=== PATIENT | male | born 1945 | race Two or more races ===

== ENCOUNTER 2022-03-20 15:30 | Inpatient (IN) | payer MEDICARE, OTHER ==
[~2022-03-20] VITALS: Ht 177.8 cm; Wt 77.7 kg
[2022-03-20] MEDS ORDERED: VANCOMYCIN PER PHARMACY 0 MG IV ONE (19:15)
[2022-03-20] MEDS ORDERED: PIPERACILLIN-TAZOB 3.375GM 100 ML IV ONE (19:15)
[2022-03-20 20:06] LABS: Basophils # (auto) 0.1 10 ^3/uL (0-0.2); Basophils % (auto) 0.8 % (0.0-2.0); Eosinophils # (auto) 0.1 10 ^3/uL (0-0.8); Eosinophils % (auto) 0.4 % (0.0-7.0); Hematocrit 43.8 % (41.0-53.0); Lymphocytes # (auto) 1.5 10 ^3/uL (0.4-5.4); Lymphocytes % (auto) 9.2 % (10.0-50.0); Mean Corpuscular Hemoglobin 29.5 pg (28.0-32.0); Mean Corpuscular Hgb Conc. 34.2 g/dL (32.0-36.0); Mean Corpuscular Volume 86.4 fL (80.0-100.0); Monocytes # (auto) 1.4 10 ^3/uL (0-1.3); Monocytes % (auto) 8.6 % (0.0-12.0); Neutrophils # (auto) 13.1 10 ^3/uL (1.6-8.6); Red Blood Cells 5.06 10^6/uL (4.5-5.90); Red Cell Distribution Width 13.4 % (11.8-14.3); White Blood Cell 16.2 10^3/uL (4.4-10.8)
[2022-03-20] MEDS ORDERED: VANCOMYCIN 1GM/250ML 250 ML IV ONE (20:15)
[2022-03-20] MEDS ORDERED: VANCOMYCIN PER PHARMACY 0 MG IV SCH (20:15)
[2022-03-20 20:21] LABS: Albumin 2.9 g/dL (3.4-5.0); Calcium 9.2 mg/dL (8.5-10.1); Potassium 4.1 mmol/L (3.5-5.1)
[2022-03-20 20:29] LABS: BUN/Creatinine Ratio 17.9; Bilirubin, Total 0.6 mg/dL (0.2-1.0); CRP High Sensitivity 18.2 mg/dL (< 0.3); Total Protein 8.8 g/dL (6.4-8.2)
[2022-03-21] VITALS (7 sets, daily range): BP systolic 123–169; BP diastolic 74–99
[2022-03-21] MEDS ORDERED: DOCUSATE SOD 100 MG CAP PO PRN (00:15)
[2022-03-21] MEDS ORDERED: VANCOMYCIN PER PHARMACY 0 MG IV SCH (00:15)
[2022-03-21] MEDS ORDERED: HYDROcodone-ACET 5/325MG TAB PO PRN (00:15)
[2022-03-21] MEDS ORDERED: DEXTROSE (50%) 50ML SYRG IV PRN (00:15)
[2022-03-21] MEDS ORDERED: ACETAMINOPHEN 325 MG TAB PO PRN (00:15)
[2022-03-21] MEDS ORDERED: ONDANSETRON HCL 4 MG/2 ML VIAL IV PRN (00:15)
[2022-03-21] MEDS: PIPERACILLIN-TAZOB 3.375GM 100 ML IV SCH ×4 (00:30→20:47)
[2022-03-21] MEDS ORDERED: NITROGLYCERIN 0.4 MG SL TAB SL PRN (01:15)
[2022-03-21] MEDS ORDERED: MORPHINE SULFATE INJECTION 2 MG/ML SYRG IV PRN (01:15)
[2022-03-21 05:41] LABS: Basophils # (auto) 0 10 ^3/uL (0-0.2); Basophils % (auto) 0.2 % (0.0-2.0); Eosinophils # (auto) 0 10 ^3/uL (0-0.8); Eosinophils % (auto) 0.1 % (0.0-7.0); Hematocrit 43.1 % (41.0-53.0); Hemoglobin 14.5 g/dL (13.5-17.5); Lymphocytes % (auto) 6.7 % (10.0-50.0); Mean Corpuscular Hemoglobin 29.2 pg (28.0-32.0); Mean Corpuscular Hgb Conc. 33.5 g/dL (32.0-36.0); Mean Corpuscular Volume 87.1 fL (80.0-100.0); Monocytes # (auto) 1.4 10 ^3/uL (0-1.3); Monocytes % (auto) 9.3 % (0.0-12.0); Neutrophils # (auto) 12.5 10 ^3/uL (1.6-8.6); Neutrophils % (auto) 83.7 % (37.0-80.0); Nucleated Red Blood Cells % 0.9 %; Red Blood Cells 4.95 10^6/uL (4.5-5.90); Red Cell Distribution Width 13.3 % (11.8-14.3)
[2022-03-21 06:05] LABS: Potassium 3.8 mmol/L (3.5-5.1)
[2022-03-21 06:17] LABS: Albumin 2.7 g/dL (3.4-5.0); BUN/Creatinine Ratio 14.7; Calcium 8.8 mg/dL (8.5-10.1); Total Protein 7.5 g/dL (6.4-8.2)
[2022-03-21] MEDS: SODIUM CHLOR 0.9% PF (SALINE LOCK) 10ML VIAL/SYR IV SCH ×3 (06:25→21:40)
[2022-03-21] MEDS: ACCU-CHEK COMFORT CURVE STRIP VI SCH ×4 (06:26→21:39)
[2022-03-21] MEDS: InsuLIN REG 1unit/0.01ml Soln (100units/ml) SC SCH ×4 (06:34→21:43)
[2022-03-21] MEDS ORDERED: VANCOMYCIN 1GM/250ML 250 ML IV SCH (10:00)
[2022-03-21] MEDS: ZINC SULFATE 220mg CAP or TAB PO SCH (10:00)
[2022-03-21] MEDS: ENOXAPARIN SOD 40 MG/0.4 ML SYRINGE SC SCH (11:05)
[2022-03-21] MEDS: FAMOTIDINE (10MG/ML) 2ML VL IV SCH ×2 (11:05→21:40)
[2022-03-21] MEDS: ASCORBIC ACID 500 MG TAB PO SCH ×2 (11:05→21:40)
[2022-03-21] MEDS: MULTIPLE VITAMIN TAB PO SCH (11:06)
[2022-03-21] MEDS: INSULIN LANTUS (GLARGINE) 1 /0.01ml (100units/ml) SC SCH ×3 (11:56→21:52)
[2022-03-21] MEDS ORDERED: LORazepam 2MG/ML-1ML VIAL IV ONE (13:15)
[2022-03-21] MEDS ORDERED: hydrALAZINE HCL 20 MG/ML VL IV PRN (14:00)
[2022-03-22] VITALS (7 sets, daily range): BP systolic 122–150; BP diastolic 75–88
[2022-03-22] MEDS: PIPERACILLIN-TAZOB 3.375GM 100 ML IV SCH ×4 (02:44→21:10)
[2022-03-22] MEDS: VANCOMYCIN 1GM/250ML 250 ML IV SCH ×2 (05:44→17:00)
[2022-03-22] MEDS: SODIUM CHLOR 0.9% PF (SALINE LOCK) 10ML VIAL/SYR IV SCH ×3 (05:45→22:39)
[2022-03-22] MEDS: INSULIN LANTUS (GLARGINE) 1 /0.01ml (100units/ml) SC SCH ×4 (06:09→22:00)
[2022-03-22] MEDS: InsuLIN REG 1unit/0.01ml Soln (100units/ml) SC SCH ×4 (06:09→22:40)
[2022-03-22] MEDS: ACCU-CHEK COMFORT CURVE STRIP VI SCH ×3 (06:46→18:30)
[2022-03-22 08:08] LABS: Basophils # (auto) 0.1 10 ^3/uL (0-0.2); Basophils % (auto) 0.8 % (0.0-2.0); Eosinophils # (auto) 0.1 10 ^3/uL (0-0.8); Eosinophils % (auto) 0.4 % (0.0-7.0); Hemoglobin 14.3 g/dL (13.5-17.5); Lymphocytes # (auto) 1.7 10 ^3/uL (0.4-5.4); Lymphocytes % (auto) 10.7 % (10.0-50.0); Mean Corpuscular Hemoglobin 29.5 pg (28.0-32.0); Mean Corpuscular Hgb Conc. 34.1 g/dL (32.0-36.0); Mean Corpuscular Volume 86.5 fL (80.0-100.0); Monocytes # (auto) 1.5 10 ^3/uL (0-1.3); Monocytes % (auto) 9.1 % (0.0-12.0); Neutrophils # (auto) 12.7 10 ^3/uL (1.6-8.6); Red Blood Cells 4.86 10^6/uL (4.5-5.90); Red Cell Distribution Width 13.2 % (11.8-14.3)
[2022-03-22 08:25] LABS: Albumin 2.6 g/dL (3.4-5.0); Calcium 9.1 mg/dL (8.5-10.1); Potassium 3.6 mmol/L (3.5-5.1)
[2022-03-22 08:28] LABS: BUN/Creatinine Ratio 18.5; Bilirubin, Total 0.8 mg/dL (0.2-1.0); Total Protein 7.5 g/dL (6.4-8.2)
[2022-03-22] MEDS: ZINC SULFATE 220mg CAP or TAB PO SCH (08:57)
[2022-03-22] MEDS: FAMOTIDINE (10MG/ML) 2ML VL IV SCH ×2 (08:57→22:39)
[2022-03-22] MEDS: ENOXAPARIN SOD 40 MG/0.4 ML SYRINGE SC SCH (08:57)
[2022-03-22] MEDS: MULTIPLE VITAMIN TAB PO SCH (08:57)
[2022-03-22] MEDS: ASCORBIC ACID 500 MG TAB PO SCH ×2 (08:57→22:39)
[2022-03-23] VITALS (7 sets, daily range): BP systolic 128–155; BP diastolic 69–83
[2022-03-23] MEDS: PIPERACILLIN-TAZOB 3.375GM 100 ML IV SCH (03:25)
[2022-03-23] MEDS: ACCU-CHEK COMFORT CURVE STRIP VI SCH ×2 (03:28→22:00)
[2022-03-23 06:22] LABS: Basophils # (auto) 0.1 10 ^3/uL (0-0.2); Eosinophils # (auto) 0.2 10 ^3/uL (0-0.8); Eosinophils % (auto) 1.1 % (0.0-7.0); Hematocrit 40.5 % (41.0-53.0); Lymphocytes # (auto) 1.7 10 ^3/uL (0.4-5.4); Lymphocytes % (auto) 11.6 % (10.0-50.0); Mean Corpuscular Hemoglobin 29.7 pg (28.0-32.0); Mean Corpuscular Hgb Conc. 34.6 g/dL (32.0-36.0); Mean Corpuscular Volume 85.8 fL (80.0-100.0); Monocytes # (auto) 1.5 10 ^3/uL (0-1.3); Monocytes % (auto) 10.4 % (0.0-12.0); Neutrophils # (auto) 10.9 10 ^3/uL (1.6-8.6); Neutrophils % (auto) 75.9 % (37.0-80.0); Red Blood Cells 4.72 10^6/uL (4.5-5.90); Red Cell Distribution Width 13.2 % (11.8-14.3); White Blood Cell 14.3 10^3/uL (4.4-10.8)
[2022-03-23 06:29] LABS: Calcium 8.9 mg/dL (8.5-10.1); Potassium 3.6 mmol/L (3.5-5.1)
[2022-03-23 06:32] LABS: BUN/Creatinine Ratio 20.8
[2022-03-23] MEDS: ZINC SULFATE 220mg CAP or TAB PO SCH (09:58)
[2022-03-23] MEDS: FAMOTIDINE (10MG/ML) 2ML VL IV SCH ×2 (09:58→22:00)
[2022-03-23] MEDS: ASCORBIC ACID 500 MG TAB PO SCH ×2 (09:59→22:00)
[2022-03-23] MEDS: MULTIPLE VITAMIN TAB PO SCH (10:00)
[2022-03-23] MEDS: ENOXAPARIN SOD 40 MG/0.4 ML SYRINGE SC SCH (10:00)
[2022-03-23] MEDS ORDERED: levoFLOXacin 500MG 100 ML IV ONE (14:00)
[2022-03-23] MEDS: VANCOMYCIN 1GM/250ML 250 ML IV SCH ×2 (16:02→20:00)
[2022-03-23] MEDS: InsuLIN REG 1unit/0.01ml Soln (100units/ml) SC SCH (22:00)
[2022-03-23] MEDS: SODIUM CHLOR 0.9% PF (SALINE LOCK) 10ML VIAL/SYR IV SCH (22:00)
[2022-03-23] MEDS: INSULIN LANTUS (GLARGINE) 1 /0.01ml (100units/ml) SC SCH (22:00)
[2022-03-24] VITALS (7 sets, daily range): BP systolic 128–172; BP diastolic 62–86
[2022-03-24 06:25] LABS: Basophils # (auto) 0.2 10 ^3/uL (0-0.2); Basophils % (auto) 1.3 % (0.0-2.0); Eosinophils # (auto) 0.1 10 ^3/uL (0-0.8); Eosinophils % (auto) 0.6 % (0.0-7.0); Hematocrit 38.8 % (41.0-53.0); Hemoglobin 13.4 g/dL (13.5-17.5); Lymphocytes # (auto) 1.5 10 ^3/uL (0.4-5.4); Lymphocytes % (auto) 10.1 % (10.0-50.0); Mean Corpuscular Hemoglobin 29.8 pg (28.0-32.0); Mean Corpuscular Hgb Conc. 34.5 g/dL (32.0-36.0); Mean Corpuscular Volume 86.5 fL (80.0-100.0); Monocytes # (auto) 1.3 10 ^3/uL (0-1.3); Monocytes % (auto) 8.8 % (0.0-12.0); Neutrophils # (auto) 11.9 10 ^3/uL (1.6-8.6); Neutrophils % (auto) 79.2 % (37.0-80.0); Red Blood Cells 4.49 10^6/uL (4.5-5.90); Red Cell Distribution Width 13.3 % (11.8-14.3)
[2022-03-24 06:32] LABS: Potassium 3.9 mmol/L (3.5-5.1)
[2022-03-24] MEDS: InsuLIN REG 1unit/0.01ml Soln (100units/ml) SC SCH ×4 (06:47→22:02)
[2022-03-24] MEDS: VANCOMYCIN 1GM/250ML 250 ML IV SCH ×2 (06:52→12:04)
[2022-03-24] MEDS: SODIUM CHLOR 0.9% PF (SALINE LOCK) 10ML VIAL/SYR IV SCH ×3 (06:53→21:53)
[2022-03-24 06:58] LABS: Albumin 2.3 g/dL (3.4-5.0); BUN/Creatinine Ratio 17.5; Bilirubin, Total 0.6 mg/dL (0.2-1.0); Calcium 8.9 mg/dL (8.5-10.1); Total Protein 7.2 g/dL (6.4-8.2)
[2022-03-24] MEDS: INSULIN LANTUS (GLARGINE) 1 /0.01ml (100units/ml) SC SCH ×3 (07:00→22:10)
[2022-03-24] MEDS ORDERED: IOHEXOL 300 MG/ML 100ML BOTTLE IJ ONE (08:21)
[2022-03-24] MEDS: levoFLOXacin 500MG 100 ML IV SCH (09:11)
[2022-03-24] MEDS: ASCORBIC ACID 500 MG TAB PO SCH ×2 (09:11→21:53)
[2022-03-24] MEDS: ZINC SULFATE 220mg CAP or TAB PO SCH (09:12)
[2022-03-24] MEDS: MULTIPLE VITAMIN TAB PO SCH (09:12)
[2022-03-24] MEDS: ENOXAPARIN SOD 40 MG/0.4 ML SYRINGE SC SCH (09:12)
[2022-03-24] MEDS: ACCU-CHEK COMFORT CURVE STRIP VI SCH ×3 (11:57→21:56)
[2022-03-24 22:39] LABS: Amphetamine Screen, Urine NEGATIVE (NEGATIVE); Barbiturate Scree,Urine NEGATIVE (NEGATIVE); Benzodiazephine Screen, Urine NEGATIVE (NEGATIVE); Cannabinoid Screen, Urine NEGATIVE (NEGATIVE); Cocaine Screen, Urine NEGATIVE (NEGATIVE); Opiate Scree,Urine NEGATIVE (NEGATIVE); Phencyclidine Screen, Urine NEGATIVE (NEGATIVE)
[2022-03-24 23:05] LABS: Urine Blood Negative /uL (Negative); Urine Specific Gravity 1.026 (1.001-1.035)
[2022-03-24 23:13] LABS: Urine WBC 0-2 /hpf (0 - 3)
[2022-03-25] VITALS (7 sets, daily range): BP systolic 123–142; BP diastolic 63–92
[2022-03-25 00:42] LABS: Urine Bacteria NONE SEEN /hpf (None Seen)
[2022-03-25] MEDS: SODIUM CHLOR 0.9% PF (SALINE LOCK) 10ML VIAL/SYR IV SCH ×3 (06:07→21:54)
[2022-03-25 06:15] LABS: Basophils # (auto) 0.1 10 ^3/uL (0-0.2); Basophils % (auto) 0.8 % (0.0-2.0); Eosinophils # (auto) 0.2 10 ^3/uL (0-0.8); Eosinophils % (auto) 1.2 % (0.0-7.0); Hematocrit 38.7 % (41.0-53.0); Hemoglobin 13.3 g/dL (13.5-17.5); Lymphocytes # (auto) 1.7 10 ^3/uL (0.4-5.4); Lymphocytes % (auto) 11.8 % (10.0-50.0); Mean Corpuscular Hemoglobin 29.7 pg (28.0-32.0); Mean Corpuscular Hgb Conc. 34.3 g/dL (32.0-36.0); Mean Corpuscular Volume 86.6 fL (80.0-100.0); Monocytes # (auto) 1.2 10 ^3/uL (0-1.3); Monocytes % (auto) 8.3 % (0.0-12.0); Neutrophils # (auto) 11.5 10 ^3/uL (1.6-8.6); Neutrophils % (auto) 77.9 % (37.0-80.0); Nucleated Red Blood Cells % 0.1 %; Red Blood Cells 4.48 10^6/uL (4.5-5.90); Red Cell Distribution Width 13.2 % (11.8-14.3); White Blood Cell 14.7 10^3/uL (4.4-10.8)
[2022-03-25] MEDS: INSULIN LANTUS (GLARGINE) 1 /0.01ml (100units/ml) SC SCH ×2 (06:25→22:07)
[2022-03-25 06:26] LABS: Albumin 2.2 g/dL (3.4-5.0); Calcium 8.8 mg/dL (8.5-10.1); Magnesium 2.1 mg/dL (1.6-2.6); Potassium 3.8 mmol/L (3.5-5.1)
[2022-03-25] MEDS: InsuLIN REG 1unit/0.01ml Soln (100units/ml) SC SCH ×4 (06:26→22:06)
[2022-03-25] MEDS: ACCU-CHEK COMFORT CURVE STRIP VI SCH ×4 (06:27→21:54)
[2022-03-25 06:32] LABS: BUN/Creatinine Ratio 16.4; Bilirubin, Total 0.5 mg/dL (0.2-1.0); Total Protein 7.2 g/dL (6.4-8.2)
[2022-03-25] MEDS: VANCOMYCIN 1GM/250ML 250 ML IV SCH ×2 (08:58→19:55)
[2022-03-25] MEDS: ASCORBIC ACID 500 MG TAB PO SCH ×2 (08:59→21:54)
[2022-03-25] MEDS: ENOXAPARIN SOD 40 MG/0.4 ML SYRINGE SC SCH (08:59)
[2022-03-25] MEDS: ZINC SULFATE 220mg CAP or TAB PO SCH (08:59)
[2022-03-25] MEDS: MULTIPLE VITAMIN TAB PO SCH (08:59)
[2022-03-25] MEDS: levoFLOXacin 500MG 100 ML IV SCH (10:16)
[2022-03-25] MEDS: CHOLECALCIFEROL (VITD3) 2,000 UNIT CAP/TAB PO ONE ×2 (15:38→17:00)
[2022-03-26 05:00] VITALS: BP 114/60
[2022-03-26] MEDS: SODIUM CHLOR 0.9% PF (SALINE LOCK) 10ML VIAL/SYR IV SCH ×3 (06:02→21:49)
[2022-03-26 06:17] LABS: Basophils # (auto) 0.2 10 ^3/uL (0-0.2); Basophils % (auto) 1.3 % (0.0-2.0); Eosinophils # (auto) 0.2 10 ^3/uL (0-0.8); Eosinophils % (auto) 1.5 % (0.0-7.0); Hematocrit 40.9 % (41.0-53.0); Hemoglobin 13.9 g/dL (13.5-17.5); Lymphocytes # (auto) 1.4 10 ^3/uL (0.4-5.4); Lymphocytes % (auto) 11.8 % (10.0-50.0); Mean Corpuscular Hemoglobin 29.5 pg (28.0-32.0); Mean Corpuscular Volume 86.6 fL (80.0-100.0); Monocytes # (auto) 1.1 10 ^3/uL (0-1.3); Monocytes % (auto) 9.6 % (0.0-12.0); Neutrophils # (auto) 8.8 10 ^3/uL (1.6-8.6); Neutrophils % (auto) 75.8 % (37.0-80.0); Red Blood Cells 4.72 10^6/uL (4.5-5.90); Red Cell Distribution Width 13.3 % (11.8-14.3); White Blood Cell 11.6 10^3/uL (4.4-10.8)
[2022-03-26] MEDS: ACCU-CHEK COMFORT CURVE STRIP VI SCH ×4 (06:25→21:49)
[2022-03-26] MEDS: InsuLIN REG 1unit/0.01ml Soln (100units/ml) SC SCH ×4 (06:28→21:47)
[2022-03-26] MEDS: INSULIN LANTUS (GLARGINE) 1 /0.01ml (100units/ml) SC SCH ×2 (06:30→21:47)
[2022-03-26 07:49] VITALS: BP 128/86
[2022-03-26 09:00] VITALS: BP 147/96
[2022-03-26] MEDS: VANCOMYCIN 1GM/250ML 250 ML IV SCH ×2 (09:36→20:26)
[2022-03-26] MEDS: ENOXAPARIN SOD 40 MG/0.4 ML SYRINGE SC SCH (09:36)
[2022-03-26] MEDS: CHOLECALCIFEROL (VITD3) 2,000 UNIT CAP/TAB PO SCH (09:37)
[2022-03-26] MEDS: ZINC SULFATE 220mg CAP or TAB PO SCH (09:37)
[2022-03-26] MEDS: levoFLOXacin 500MG 100 ML IV SCH (09:37)
[2022-03-26] MEDS: ASCORBIC ACID 500 MG TAB PO SCH ×2 (09:37→21:46)
[2022-03-26] MEDS: MULTIPLE VITAMIN TAB PO SCH (09:37)
[2022-03-26] MEDS ORDERED: CEFTRIAXONE SODIUM 2 GM in D5W 5% 50 ML IV ONE (13:30)
[2022-03-26 17:15] VITALS: BP 152/90
[2022-03-26 20:00] VITALS: BP 128/86
[2022-03-26 22:00] VITALS: BP 137/73
[2022-03-27] VITALS (7 sets, daily range): BP systolic 111–129; BP diastolic 63–89
[2022-03-27] MEDS: SODIUM CHLOR 0.9% PF (SALINE LOCK) 10ML VIAL/SYR IV SCH ×3 (06:38→22:47)
[2022-03-27] MEDS: InsuLIN REG 1unit/0.01ml Soln (100units/ml) SC SCH ×4 (06:38→22:39)
[2022-03-27] MEDS: ACCU-CHEK COMFORT CURVE STRIP VI SCH ×4 (06:39→22:45)
[2022-03-27] MEDS: INSULIN LANTUS (GLARGINE) 1 /0.01ml (100units/ml) SC SCH ×2 (06:59→22:00)
[2022-03-27] MEDS: ENOXAPARIN SOD 40 MG/0.4 ML SYRINGE SC SCH (08:31)
[2022-03-27] MEDS: COLCHICINE 0.6 MG CAP PO SCH ×2 (08:32→22:37)
[2022-03-27] MEDS: CHOLECALCIFEROL (VITD3) 2,000 UNIT CAP/TAB PO SCH (08:32)
[2022-03-27] MEDS: ASCORBIC ACID 500 MG TAB PO SCH ×2 (08:32→22:37)
[2022-03-27] MEDS: ZINC SULFATE 220mg CAP or TAB PO SCH (08:32)
[2022-03-27] MEDS: MULTIPLE VITAMIN TAB PO SCH (08:33)
[2022-03-27] MEDS: VANCOMYCIN 1GM/250ML 250 ML IV SCH ×2 (08:35→20:30)
[2022-03-27] MEDS: CEFTRIAXONE SODIUM 2 GM in D5W 5% 50 ML IV SCH (10:40)
[2022-03-27] MEDS ORDERED: methylPREDNISolone SOD SUCC 40 MG/ML VL IV ONE (15:15)
[2022-03-28 05:00] VITALS: BP 168/99
[2022-03-28] MEDS: SODIUM CHLOR 0.9% PF (SALINE LOCK) 10ML VIAL/SYR IV SCH ×2 (06:04→13:47)
[2022-03-28] MEDS: InsuLIN REG 1unit/0.01ml Soln (100units/ml) SC SCH ×3 (06:42→17:00)
[2022-03-28] MEDS: INSULIN LANTUS (GLARGINE) 1 /0.01ml (100units/ml) SC SCH (06:43)
[2022-03-28] MEDS: ACCU-CHEK COMFORT CURVE STRIP VI SCH ×3 (06:45→17:37)
[2022-03-28] MEDS ORDERED: hydrALAZINE HCL 10 MG TAB PO PRN (08:00)
[2022-03-28] MEDS: VANCOMYCIN 1GM/250ML 250 ML IV SCH (08:10)
[2022-03-28 09:00] VITALS: BP 126/84
[2022-03-28 09:37] LABS: Basophils # (auto) 0.2 10 ^3/uL (0-0.2); Basophils % (auto) 1.5 % (0.0-2.0); Eosinophils # (auto) 0 10 ^3/uL (0-0.8); Eosinophils % (auto) 0.3 % (0.0-7.0); Hematocrit 40.4 % (41.0-53.0); Hemoglobin 13.8 g/dL (13.5-17.5); Lymphocytes # (auto) 1.5 10 ^3/uL (0.4-5.4); Lymphocytes % (auto) 14.1 % (10.0-50.0); Mean Corpuscular Hemoglobin 29.4 pg (28.0-32.0); Mean Corpuscular Volume 86.5 fL (80.0-100.0); Monocytes # (auto) 0.9 10 ^3/uL (0-1.3); Monocytes % (auto) 8.5 % (0.0-12.0); Neutrophils # (auto) 8.2 10 ^3/uL (1.6-8.6); Neutrophils % (auto) 75.6 % (37.0-80.0); Red Blood Cells 4.67 10^6/uL (4.5-5.90); Red Cell Distribution Width 13.4 % (11.8-14.3); White Blood Cell 10.9 10^3/uL (4.4-10.8)
[2022-03-28] MEDS: CHOLECALCIFEROL (VITD3) 2,000 UNIT CAP/TAB PO SCH (09:44)
[2022-03-28] MEDS: ENOXAPARIN SOD 40 MG/0.4 ML SYRINGE SC SCH (09:44)
[2022-03-28] MEDS: COLCHICINE 0.6 MG CAP PO SCH (09:44)
[2022-03-28] MEDS: MULTIPLE VITAMIN TAB PO SCH (09:44)
[2022-03-28] MEDS: ZINC SULFATE 220mg CAP or TAB PO SCH (09:44)
[2022-03-28] MEDS: ASCORBIC ACID 500 MG TAB PO SCH (09:44)
[2022-03-28] MEDS: CEFTRIAXONE SODIUM 2 GM in D5W 5% 50 ML IV SCH (09:44)
[2022-03-28] MEDS ORDERED: PENICILLIN G POTASSIUM 3,000,000 UNITS in D5W 5% 50 ML IV SCH (10:00)
[2022-03-28] MEDS: PENICILLIN G POTASSIUM 3,000,000 UNITS in D5W 5% 50 ML IV SCH ×2 (12:19→16:49)
[2022-03-28 13:00] VITALS: BP 133/84
[2022-03-28] MEDS ORDERED: INSLANTI SC (14:12)
[2022-03-28] MEDS ORDERED: PENI500T2 PO (14:12)
[2022-03-28] MEDS ORDERED: CHOL20007 PO (14:12)
[2022-03-28] MEDS ORDERED: COLC1TAB3 PO (14:12)
[2022-03-28] MEDS ORDERED: LISI20TA28 PO (14:12)
[2022-03-28] MEDS ORDERED: methylPREDNISolone SOD SUCC 40 MG/ML VL IV ONE (14:15)
[2022-03-28 17:00] VITALS: BP 126/82
== END 2022-03-28 20:54 | disposition home or self-care (01) | DRG 872 ==
LOC: ER 15:47 → OVERFLOW 03-21 01:04 → WEST WING 03-21 02:15
PROVIDERS: ADMIT Nurse Practitioner Family; ATTEND Internal Medicine
DX: A41.9 Sepsis, unspecified organism (principal); L03.114 Cellulitis of left upper limb; E87.1 Hypo-osmolality and hyponatremia; E11.65 Type 2 diabetes mellitus with hyperglycemia; E55.9 Vitamin D deficiency, unspecified; E66.9 Obesity, unspecified; E88.09 Other disorders of plasma-protein metabolism, not elsewhere classified; I10 Essential (primary) hypertension; I87.2 Venous insufficiency (chronic) (peripheral); Z20.822 Contact with and (suspected) exposure to COVID-19; M19.042 Primary osteoarthritis, left hand; Z82.61 Family history of arthritis; Z68.28 Body mass index [BMI] 28.0-28.9, adult; Z79.84 Long term (current) use of oral hypoglycemic drugs
CPT/HCPCS: 36415; 71045; 73120; 73200; 73201; 78315; 80048; 80053; 80061; 80202; 80307; 81001; 82306; 82962; 83036; 83605; 83735; 83880; 84443; 85025; 85652; 86141; 87040; 93306; 93971; 96365; 96366; 96368; 99291; G0378; J0696; J1815; J1956; J2543; J3490; J7060

== ENCOUNTER 2024-08-17 17:35 | Emergency (ER) | payer MEDICARE, MEDICAID ==
[~2024-08-17] VITALS: Ht 182.9 cm; Wt 91.0 kg
[~2024-08-17 17:35] MED LIST: INSLANTI SC; PENI500T2 PO
[2024-08-17 18:22] VITALS: BP 149/83; PULSE 88; RESP 18; O2SAT 97
[2024-08-17 19:53] LABS: Basophils # (auto) 0 10 ^3/uL (0-0.2); Basophils % (auto) 0.4 % (0.0-2.0); Eosinophils # (auto) 0.1 10 ^3/uL (0-0.8); Eosinophils % (auto) 0.7 % (0.0-7.0); Hematocrit 39.9 % (41.0-53.0); Hemoglobin 13.9 g/dL (13.5-17.5); Lymphocytes % (auto) 10.2 % (10.0-50.0); Mean Corpuscular Hemoglobin 30.9 pg (28.0-32.0); Mean Corpuscular Hgb Conc. 34.8 g/dL (32.0-36.0); Mean Corpuscular Volume 88.8 fL (80.0-100.0); Monocytes # (auto) 0.8 10 ^3/uL (0-1.3); Monocytes % (auto) 8.2 % (0.0-12.0); Neutrophils % (auto) 80.5 % (37.0-80.0); Nucleated Red Blood Cells % 0.1 %; Platelet Count (auto) 200 10^3/uL (140-450); Red Blood Cells 4.49 10^6/uL (4.5-5.90); Red Cell Distribution Width 13.2 % (11.8-14.3)
[2024-08-17 20:11] LABS: Alanine Aminotransferase 21 U/L (7-40); Alkaline Phosphatase 62 U/L (46-116); Anion Gap 7 (5-15); Aspartate Aminotransferase 14 U/L (13-40); BUN/Creatinine Ratio 19.8 (10.0-20.0); Bilirubin, Total 0.5 mg/dL (0.2-1.0); Blood Urea Nitrogen 24 mg/dL (9-23); Calcium 9.7 mg/dL (8.7-10.4); Carbon Dioxide 27 mmol/L (20-31); Chloride 100 mmol/L (98-107); Glucose 233 mg/dL (74-106); Potassium 4.3 mmol/L (3.5-5.1); Sodium 134 mmol/L (136-145); Total Protein 6.9 g/dL (5.7-8.2)
== END 2024-08-17 23:46 | disposition left against medical advice (07) ==
LOC: EDBD 17:35 → ER 18:00
DX: I63.9 Cerebral infarction, unspecified (principal); R42 Dizziness and giddiness; I10 Essential (primary) hypertension; E11.9 Type 2 diabetes mellitus without complications; E78.5 Hyperlipidemia, unspecified; E66.01 Morbid (severe) obesity due to excess calories; Z68.27 Body mass index [BMI] 27.0-27.9, adult; Z79.899 Other long term (current) drug therapy
CPT/HCPCS: 36415; 70450; 80053; 84484; 85025; 93005